=== PATIENT | male | born 1955 | race Caucasian/White ===

== ENCOUNTER 2021-10-17 13:51 | Emergency (ER) | payer BC, SELFPAY ==
--- NOTE | ~2021-10-17 | XR_ITS ---
XR ankle RT min 3V DATE: 10/17/2021 14:14 INDICATION: Lateral ankle pain after twisting injury 2 days ago TECHNIQUE: 4 views COMPARISON: None FINDINGS: There is a linear oblique lateral malleolar fracture with approximately 3 mm lateral and 2. 3 mm posterior displacement, no significant angulation. There is prominent overlying soft tissue swel ling. No other fracture is detected. The ankle mortise appears intact. Plantar calcaneal enthesopathy. IMPRESSION: Lateral malleolar fracture Reviewed, dictated and finalized at location A. IMPRESSION: Lateral malleolar fracture
[2021-10-17 14:00] VITALS: BP 160/106; PULSE 78; RESP 16; TEMP 36.5; O2SAT 99
--- NOTE | 2021-10-17 14:11 | ED.LOWEXIN ---
HPI - Extremity Injury (Lower) General Chief Complaint: Extremity Injury, Lower Stated Complaint: right ankle pain Time Seen by Provider: 10/17/21 14:15 Source: patient and family Mode of arrival: ambulatory Limitations: no limitations History of Present Illness HPI Narrative: 65-year-old male presents to the [facility] with complaints of right ankle pain, swelling since rolling it yesterday while hiking. Onset (ago): day(s) (1) Injury: Right: ankle Related Data Home Medications Medication Instructions Recorded Confirmed acyclovir 200 mg capsule 1 cap PO DAILY 10/17/21 10/17/21 alprazolam 0.25 mg tablet 0.25 tablet PO DAILY 10/17/21 10/17/21 atenolol 100 mg tablet 1 tablet PO DAILY 10/17/21 10/17/21 atorvastatin 40 mg tablet 1 tablet PO DAILY 10/17/21 10/17/21 etanercept 50 mg/mL (1 mL) 1 ea subcut WEEKLY 10/17/21 10/17/21 subcutaneous pen injector (Enbrel SureClick) folic acid 1 mg tablet 1 tablet PO DAILY 10/17/21 10/17/21 sertraline 100 mg tablet 1 tablet PO DAILY 10/17/21 10/17/21 Allergies Allergy/AdvReac Type Severity Reaction Status Date / Time tetracycline Allergy Mild Other Verified 10/17/21 14:08 Review of Systems Review of Systems: All systems reviewed & are unremarkable except as noted in HPI and below Constitutional: Constitutional: Reports no additional constitutional complaints, Denies chills and Denies fever(s) Eyes: Eyes: Reports no additional eye complaints ENT: Reports system reviewed and no additional complaints, except as documented Cardiovascular: Cardiovascular: Reports no additional cardiovascular complaints Respiratory: Respiratory: Reports no additional respiratory complaints Gastrointestinal: Gastrointestinal: Reports no additional gastrointestinal complaints Musculoskeletal: Musculoskeletal: Reports as per HPI, Reports arthralgias and Reports joint swelling (Right ankle) Integumentary/Breasts: Skin/Breast: Reports system reviewed and no additional complaints, except as docu Neurologic: Reports system reviewed and no additional complaints, except as documented Psychiatric: Psychiatric: Reports no additional psychiatric complaints Allergic/Immunologic: Allergic/Immunologic: Reports no additional allergic/immunologic complaints [facility] Past Medical History Medical History (Updated 10/17/21 @ 20:21 by Shaylee Griffin APRN) Anxiety High cholesterol History of high blood pressure Social History Social History (Updated 10/17/21 @ 20:22 by Shaylee Griffin APRN) Living arrangements: with family Gender identity (if verbalized by the patient): Male Comments At the time of my signature, I reviewed and agree with the nursing past medical, surgical, social, and family history. There is no relevant family history pertinent to the patient complaint. Exam Const: General: healthy appearing, alert, uncomfortable and well groomed Nutritional Appearance: well nourished Orientation/consciousness: patient oriented x3 Limitations: no limitations HENMT: Head: normal to inspection Ears: external ears normal Eyes: General: appearance normal, both eyes and all related structures Pupils: Equal, round and reactive pupils present Neck: Neck: normal visual inspection, no lymphadenopathy and no meningeal signs Chest: Chest palpation & inspection: normal inspection of the chest Resp: Effort & Inspection: normal respiratory effort and no use of accessory muscles Auscultation: clear to auscultation bilaterally Cardio: Rate: regular rate Rhythm: regular rhythm GI: GI Palp: Yes Soft to palpation and No Tenderness to palpation present (GI) Back/Spine/Pelvis: Cervical Spine: normal cervical lordosis Thoracic/Lumbar Spine: thoracic and lumbar spine normal to inspection Skin: General skin exam: normal color Rashes: no rashes Wounds: no wounds Neuro: General: patient oriented x3, moves all extremities, no meningeal signs and no focal motor deficits Cranial nerves: Yes Equal, rourenea
== END 2021-10-17 15:15 | disposition home or self-care (01) ==
PROVIDERS: Emergency Provider Nurse Practitioner
DX: S82.61XA Displaced fracture of lateral malleolus of right fibula, initial encounter for closed fracture (principal); F41.9 Anxiety disorder, unspecified; X50.1XXA Overexertion from prolonged static or awkward postures, initial encounter; Y93.01 Activity, walking, marching and hiking
CPT/HCPCS: 29515; 73610; 99214; G0463

== ENCOUNTER 2023-08-31 13:41 | Emergency (ER) | payer BC, SELFPAY ==
--- NOTE | ~2023-08-31 | US_ITS ---
EXAMINATION: US scrotum doppler DATE: 08/31/2023 15:31 INDICATION: Right testicular pain. TECHNIQUE: Grayscale and Doppler ultrasound images of the testes were obtained. COMPARISON: None. FINDINGS: The right testis measures 3.9 x 1.8 x 2.4 cm. The left testis measures 3.0 x 1.4 x 1.2 cm. There is normal vascular flow to both testes. The right epididymis is enlarged with heterogeneous ech ogenicity and with increased vascular flow, consistent with epididymitis. There is a 5 mm cyst in rig ht epididymis. The left epididymis is normal with normal vascular flow. There is a small right hydroc benjie. IMPRESSION: 1. Right-sided epididymitis. 2. Small right hydrocele. Reviewed, dictated and finalized at location E.
[2023-08-31 13:42] VITALS: BP 159/87; PULSE 64; RESP 18; TEMP 36.5; O2SAT 100
--- NOTE | 2023-08-31 15:36 | ED.MALEGU ---
HPI - Male Genitourinary General Chief complaint: Urogenital-Male Stated complaint: Enlarged and painful testicle Time Seen by Provider: 08/31/23 13:49 History of Present Illness HPI Narrative: 67-year-old male presents to the emergency room for evaluation of gradual onset of right testicular swelling and pain. Patient denies injury or trauma. Denies dysuria. No concerns of STIs. States the testicular pain is improved when the testicles are supported.. Related Data Home Medications Medication Instructions Recorded Confirmed acyclovir 200 mg capsule 1 cap PO DAILY 10/17/21 10/17/21 alprazolam 0.25 mg tablet 0.25 tablet PO DAILY 10/17/21 10/17/21 atenolol 100 mg tablet 1 tablet PO DAILY 10/17/21 10/17/21 atorvastatin 40 mg tablet 1 tablet PO DAILY 10/17/21 10/17/21 etanercept 50 mg/mL (1 mL) 1 ea subcut WEEKLY 10/17/21 10/17/21 subcutaneous pen injector (Enbrel SureClick) folic acid 1 mg tablet 1 tablet PO DAILY 10/17/21 10/17/21 sertraline 100 mg tablet 1 tablet PO DAILY 10/17/21 10/17/21 Allergies Allergy/AdvReac Type Severity Reaction Status Date / Time tetracycline Allergy Mild Other Verified 08/31/23 13:45 Review of Systems Review of Systems: ROS unremarkable as otherwise stated in HPI [facility] Past Medical History Medical History Anxiety High cholesterol History of high blood pressure Social History Social History Living arrangements: with family Gender identity (if verbalized by the patient): Male Exam Narrative: GENERAL: Well-appearing, well-nourished, no physical limitations, and in no acute distress. HEAD: Normocephalic, atraumatic. EYES: Conjunctivae normal, PERRLA and EOMI. CHEST: Clear to auscultation. No respiratory distress. No wheezes rales or rhonchi. HEART: Regular rate and rhythm. No murmur heard. Normal peripheral pulses. ABDOMEN: Soft, nontender, nondistended, normal active bowel sounds. : + cremasteric reflex bilaterally, +prehns sign EXTREMITIES: Normal range of motion. No edema. No clubbing or cyanosis SKIN: Warm, dry, no rash. No noted wounds NEURO: No focal deficits. Alert and oriented x3. MAEW. CN's II-XI intact bilaterally, normal gait PSYCH: Cooperative. Normal mood and affect. Course Vital Signs Vital signs: Vital Signs Temperature 36.5 C 08/31/23 13:42 Pulse Rate 64 08/31/23 13:42 Respiratory Rate 18 08/31/23 13:42 Blood Pressure 159/87 H 08/31/23 13:42 Pulse Oximetry 100 08/31/23 13:42 Oxygen Delivery Room Air 08/31/23 13:42 Temperature 36.5 C 08/31/23 13:42 Pulse Rate 64 08/31/23 13:42 Respiratory Rate 18 08/31/23 13:42 Blood Pressure 159/87 H 08/31/23 13:42 Pulse Oximetry 100 08/31/23 13:42 Oxygen Delivery Room Air 08/31/23 13:42 MDM - Male Genitourinary Lab Data Labs: Lab Results 08/31/23 Range/Units 15:41 Urine Color Yellow (Yellow) Urine Appearance Clear (Clear) Urine pH 5.5 (5.0-9.0) Ur Specific [place] 1.013 (1.001-1.035) Urine Protein Negative (Negative) mg/dL Urine Glucose (UA) Negative (Negative) mg/dL Urine Ketones Negative (Negative) mg/dL Ur Blood (Man) Negative (Negative) Urine Nitrate Negative (Negative) Urine Bilirubin Negative (Negative) Urine Urobilinogen 0.2 (<2.0) mg/dL Leukocyte Esterase Rfl 2+ H (Negative) KATJA/UL Urine RBC 0-2 (0-2) /hpf Urine WBC 21-50 H (0-3) /hpf Ur Squamous Epith Cells None seen (Few) /hpf Urine Bacteria None seen /hpf Urine Casts 0-2 Discharge Plan Discharge Clinical Impression: Epididymitis Patient Disposition: Home, Self-Care Condition: Stable Instructions: Antibiotic Form, Epididymitis (ED) Prescriptions: New levofloxacin 500 mg tablet 500 mg PO DAILY 10 Days Qty: 10 0RF No Action atorvastatin 40 mg tablet 1 tablet PO DAILY
[2023-08-31 15:40] VITALS: BP 149/88; PULSE 72; RESP 15; O2SAT 99
[2023-08-31 16:03] LABS: Appearance Urine Clear (Clear); Bacteria Urine None Seen /hpf; Bilirubin Urine Negative (Negative); Blood Urine Negative (Negative); Color Urine Yellow (Yellow); Glucose Urine UA Negative (Negative); Ketones Urine Negative (Negative); Leukocyte Esterase Ur 2+ LEU/UL (Negative); Nitrate Urine Negative (Negative); Non Pathogenic Casts 0-2; Protein Urine Negative (Negative); RBC Urine 0-2 /hpf (0-2); Specific Grav Ur 1.013 (1.001-1.035); Squamous Epithelial Cell Urine None Seen /hpf (Few); Urobilinogen Urine 0.2 mg/dL (<2.0); WBC Urine 21-50 /hpf (0-3); pH Urine 5.5 (5.0-9.0)
[2023-08-31 16:12] LABS: Add Urine Microscopic? YES
[2023-08-31 16:28] VITALS: BP 150/88; PULSE 82; RESP 17; TEMP 36.8; O2SAT 99
== END 2023-08-31 16:29 | disposition home or self-care (01) ==
PROVIDERS: Emergency Provider Nurse Practitioner Family
DX: N45.1 Epididymitis (principal); I10 Essential (primary) hypertension; E78.5 Hyperlipidemia, unspecified; F41.9 Anxiety disorder, unspecified
CPT/HCPCS: 76870; 81001; 87086; 93976; 99284